=== PATIENT | male | born 1950 | race Caucasian/White ===

== ENCOUNTER 2020-05-13 06:40 | Inpatient (IN) | payer MEDICARE, BC, SELFPAY ==
[2020-05-13] VITALS (19 sets, daily range): BP systolic 92–119; BP diastolic 48–69; PULSE 65–87; RESP 14–20; TEMP 36.7–37.2; O2SAT 95–100; BMI 22.1
--- NOTE | ~2020-05-13 | XR_ITS ---
XR chest 2V DATE: 05/13/2020 07:21 INDICATION: Chest pain TECHNIQUE: AP and lateral views COMPARISON: 02/09/2019 AP and lateral chest FINDINGS: Normal heart size. No hilar or mediastinal enlargement. No pulmonary infiltrate or consolidation, pleural effusion or pulmonary vascular congestion or pneumo thorax. Included skeletal structures are unremarkable other than degenerative spurring of the thoracic spine. IMPRESSION: No active cardiopulmonary disease Reviewed, dictated and finalized at location A. RER PIPELINE
--- NOTE | ~2020-05-13 | US_ITS ---
EXAMINATION: US aorta DATE: 05/14/2020 16:05 INDICATION: Palpable aorta. Epigastric pain. TECHNIQUE: Grayscale, color Doppler, and pulsed Doppler images of the aorta and common iliac arteries were obtained. COMPARISON: None. FINDINGS: The proximal aorta measures 1.9 cm in maximal AP diameter. The mid aorta measures 1.6 cm. The distal aorta measures 1.4 cm. The right common iliac artery measures 9 mm. The left common iliac artery hiren ures 9 mm. IMPRESSION: 1. Normal caliber abdominal aorta. Reviewed, dictated and finalized at location A. E PROFESSOR
--- NOTE | 2020-05-13 06:41 | ECG_ITS ---
Measurements Intervals [place] Rate: 84 P: 42 LA: 120 QRS: 0 QRSD: 110 T: 100 QT: 355 QTc: 421 Interpretive Statements SINUS RHYTHM BORDERLINE T WAVE ABNORMALITY- DIFFUSE LEADS BASELINE ARTIFACT- I, II, III, AVR, AVL, AVF, V3-V6 BORDERLINE ECG Electronically Signed On 05-13-2020 8:05:52 EQUIPMENT PLANNER by Raheel Garcia D.O.
--- NOTE | 2020-05-13 07:06 | ED.CHESTPAIN ---
HPI - Chest Pain General Chief Complaint: Chest Pain Stated Complaint: chest pain Time Seen by Provider: 05/13/20 06:59 History of Present Illness HPI narrative: Severe pain in the epigastrium, chest, and throat since about 10 PM last night. Unable to provide further description of timing, course, or quality. He says that he has had similar pain in the past. He does not known what caused it. He says that he is in too much agony to provide anymore history. History limited by lack of patient cooperation. Related Data Home Medications Medication Instructions Recorded Confirmed [id number]-LI-Dl-Ub-djjfvhk-lutein 0.5 tablet PO USEASDIRECTD 05/13/20 05/13/20 [Centrum] vitamin B complex 1 tablet PO DIRECTED 05/13/20 05/13/20 Allergies Allergy/AdvReac Type Severity Reaction Status Date / Time No Known Allergies Allergy Verified 05/13/20 17:48 Review of Systems Review of Systems: All systems reviewed & are unremarkable except as noted in HPI and below Constitutional: Constitutional: Denies chills and Denies fever(s) ENT: Reports sore throat Cardiovascular: Cardiovascular: Reports chest pain and Reports radiating jaw, neck or arm pain Respiratory: Respiratory: Denies cough and Denies dyspnea Gastrointestinal: Gastrointestinal: Reports abdominal pain and Reports nausea Neurologic: Denies weakness PMFSH Comments Not providing medical history at this time Exam Const: General: no acute distress and alert HENMT: Head: normal to inspection Neck: Neck: normal visual inspection Resp: Effort & Inspection: normal respiratory effort Skin: General skin exam: normal color Neuro: General: moves all extremities Speech: normal speech Extrem: General: no edema Course Course Emergency Course: After medicating the patient he slept for a couple of hours then upon reassement he was once again shouting and unwilling to provide history. Vital Signs Vital signs: Vital Signs Temperature 36.7 C 05/13/20 06:41 Pulse Rate 76 05/13/20 06:41 Respiratory Rate 19 05/13/20 06:41 Blood Pressure 113/69 05/13/20 06:41 Pulse Oximetry 99 05/13/20 06:41 Temperature 36.7 C 05/13/20 06:41 Pulse Rate 73 05/13/20 17:33 Respiratory Rate 20 05/13/20 17:33 Blood Pressure 107/59 L 05/13/20 17:33 Pulse Oximetry 98 05/13/20 17:33 MDM - Chest Pain MDM Narrative Medical decision making narrative: Pain seems most likely GI, but given that it is on going it is difficult to fully r/o cardiac cause. Previous admission he did have elevated troponin. Medical Records Data Attestation: I reviewed the patient's medical records. Lab Data Attestation: I reviewed the patient's lab results. Result diagrams: 05/13/20 06:58 05/13/20 06:58 Labs: Lab Results 05/13/20 05/13/20 05/13/20 Range/Units 06:57 06:58 06:58 WBC 6.0 (4.5-10.0) K/mm3 RBC 4.29 L (4.6-6.20) M/mm3 Hgb 13.1 L (14.0-18.0) g/dL Hct 38.0 L (42.0-52.0) % MCV 88.6 (80-100) fl MCH 30.5 (26-34) pg MCHC 34.5 (32-36) g/dl RDW 12.5 (11.5-14.5) % Plt Count 137 L (150-375) k/mm3 MPV 10.9 H (7.4-10.4) fl Immature Gran % (Auto) 0.3 (0-0.5) % Neut % (Auto) 86.6 H (45.5-73.1) % Lymph % (Auto) 10.0 L (18.3-44.2) % [place] % (Auto) 2.8 (2.6-8.5) % Eos % (Auto) 0.0 (0-4.4) % Baso % (Auto) 0.3 (0.2-1.2) % Lymph # (Auto) 0.60 L (0.9-3.2) K/mm3 [place] # (Auto) 0.2 (0.1-0.6) K/mm3 Eos # (Auto) 0.0 (0-0.3) K/mm3 Baso # (Auto) 0.0 (0.0-0.1) K/mm3 Abs Immat Gran (auto) 0.02 (0.00-0.031) K/mm3 Absolute Neuts (auto) 5.2 (1.3-6.7) K/mm3 Absolute Nucleated RBC 0.0 (0.0-0.012) K/mm3 Nucleated RBC % 0.0 (0.0-0.2) % % Immature Plt Fraction 5.4 (0.9-11.2) % PT 14.4 (11.1-14.7) Seconds INR 1.1 APTT 29.0 (22.3-36.8) SECONDS Sodium (137-145) mmol/L Potassium (3.4-5.0) mmol/L Chloride (98-107)
[2020-05-13 07:12] LABS: Basophils Percent Auto 0.3 % (0.2-1.2); Hemoglobin 13.1 g/dL (14.0-18.0); Immature Granulocyte Absolute 0.02 K/mm3 (0.00-0.031); Immature Granulocyte Percent A 0.3 % (0-0.5); Immature Platelet Fraction Pct 5.4 % (0.9-11.2); Mean Corpuscular HGB Conc 34.5 g/dl (32-36); Mean Corpuscular Hemoglobin 30.5 pg (26-34); Mean Corpuscular Volume 88.6 fl (80-100); Mean Platelet Volume 10.9 fl (7.4-10.4); Monocytes Absolute Auto 0.2 K/mm3 (0.1-0.6); Monocytes Percent Auto 2.8 % (2.6-8.5); Neutrophils Absolute Auto 5.2 K/mm3 (1.3-6.7); Neutrophils Percent Auto 86.6 % (45.5-73.1); Platelet Count Result 137 k/mm3 (150-375); Red Blood Count 4.29 M/mm3 (4.6-6.20); Red Cell Distribution Width 12.5 % (11.5-14.5)
[2020-05-13 07:20] LABS: INR 1.1; Prothrombin Time 14.4 Seconds (11.1-14.7)
[2020-05-13 07:24] LABS: Anion Gap 10 mmol/L (8-16); Blood Urea Nitrogen 15 mg/dL (9-20); Calcium 10.1 mg/dL (8.4-10.2); Carbon Dioxide 27 mmol/L (22-30); Chloride 101 mmol/L (98-107); Estimated CRCL calculation 60 ml/min; Estimated Glomerular Filt Rate > 60; Glucose 139 mg/dL (75-110); Potassium 4.1 mmol/L (3.4-5.0); Sodium 138 mmol/L (137-145)
[2020-05-13] MEDS: MORPHINE SULFATE (*CRX) 2 MG/ML INJ IV PUSH ×2 (07:25→10:12)
[2020-05-13] MEDS: PANTOPRAZOLE SODIUM IV 40 MG VIAL IV PUSH ×2 (07:25→23:50)
[2020-05-13 07:36] LABS: Troponin I < 0.012 ng/mL (0.000-0.034)
[2020-05-13 07:51] LABS: Alanine Aminotransferase 14 U/L (4-50); Albumin Level 4.3 g/dL (3.5-5.1); Alkaline Phosphatase 79 U/L (38-126); Aspartate Amino Transferase 28 U/L (17-59); Bilirubin,Total 0.6 mg/dL (0.2-1.3); Lipase 98 U/L (23-300)
[2020-05-13 10:39] LABS: Troponin I < 0.012 ng/mL (0.000-0.034)
[2020-05-13 13:15] LABS: Troponin I < 0.012 ng/mL (0.000-0.034)
--- NOTE | 2020-05-13 13:30 | PM.IMHP ---
H&P: HPI History of Present Illness Date/Time: 05/13/20 13:30. The patient was seen and evaluated in the emergency department. Chief complaint: Chest pain, nausea, and vomiting. Narrative: Joseph Sims is a pleasant 69-year-old male with paroxysmal atrial fibrillation and hypertension, no longer on medications, via EMS from home for evaluation of chest pain, nausea, and vomiting. As the evening progressed yesterday he began to feel nauseated and had several bouts of emesis thereafter consisting of the food he had prepared for dinner, which was a rice based dish. Not long thereafter he began experiencing pain in the epigastrium radiating to the mid chest and to the base of the neck. He is not able to describe the pain but reports that it was so severe that it was ?unbearable.? He does have occasional heartburn and in fact tells me that he purchased Mylanta several days ago for heartburn and it seemed to help at that time, however provided him no relief last evening. He continues to be nauseated however has not vomited since last evening. After receiving a GI cocktail, Protonix, and morphine in the emergency department he feels much better. He has been quite emotional recently with increase in stress as his has been diagnosed with female cancer and she is currently had a usp after being hospitalized. He has not had any longstanding problems with GERD and has no known history of peptic ulcers. He denies bloating, early satiety, and weight loss. He has not had exertional chest pain or shortness of breath. He drinks 2 cups of decaffeinated coffee a day and will rarely drink alcohol. No NSAID use. He denies hematemesis, melena, and hematochezia. Review of Systems Review of Systems: Narrative: Twelve systems were reviewed with pertinent positives and negatives as per HPI. No fever, chills, or sweats. No recent cold or flu symptoms. To his knowledge he has not been exposed to those positive for COVID-19. No orthopnea, PND, or lower extremity edema. He denies palpitations and pleuritic pain. No known history of coronary artery disease. He does have a history of paroxysmal atrial fibrillation but stopped taking his anticoagulation and metoprolol several months ago because it was causing him to feel weak and woozy. Except as documented, all other systems were reviewed and are negative. [facility] Past Medical History Medical History (Updated 05/13/20 @ 23:16 by Mansi Fulton PA-C) Anemia Anxiety Hypertension No longer on medication. Kidney stones Paroxysmal atrial fibrillation He stopped taking his anticoagulation of his own volition. Thrombocytopenia Chronic, mild thrombocytopenia. Surgical History Surgical History (Updated 05/13/20 @ 23:13 by Mansi Fulton PA-C) History of nephrolithotomy with removal of calculi Family History Family History Father Alzheimer disease Mother Pneumonia Sibling Ulcer Social History Social History (Updated 05/13/20 @ 23:14 by Mansi Fulton PA-C) Social History: Surrogate decision maker: Jodi Edwards, spouse. Code status: Full code. Smoking packs per day: 0.5 Smoking cigarettes per day: 10.0 Years smoked: 17 Smoking pack-years: 8.50 Smoking status: Former smoker Tobacco type: cigarettes Second hand tobacco smoke exposure: Yes Alcohol intake: current Substance use: never Additional living arrangements comments: Patient resides with his in [place]. He is originally from [place] and studied in [place] and [place] before moving to the [facility] [place]. 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 Gender identity (if verbalized by the patient): Male Sexual Orientation (if Verbalized by the Patient): Straight or Heterosexual Spiritual care concerns: No Meds Home Medications and Allergies Home Medicati
--- NOTE | 2020-05-13 16:30 | PC.NURSE ---
PT OFFERED DINNER TRAY. REFUSES TRAY AT THIS TIME. PT GIVEN WATER PER PT REQUEST
--- NOTE | 2020-05-13 17:50 | ADMGEN ---
This patient, Joseph Sims, was admitted to [facility]. Patient/family oriented to hospital policies and general routines including ID bracelet, bed and alarms, visiting hours, pain management, procedures, bathroom and other care routines, personal items, smoking policy, room service/diet, and visiting hours. Information on how to activate the Rapid Response Team has been discussed. Patient/Family are encouraged to report perceived risks to care and to ask questions if they do not understand what they are told or what they should do.
[2020-05-13] MEDS: SODIUM CHLORIDE 0.9% IV 1,000 ML 100 ML IV CONT (23:50)
[2020-05-14] VITALS (10 sets, daily range): BP systolic 90–123; BP diastolic 49–52; PULSE 56–72; RESP 15–20; TEMP 36.6–37.1; O2SAT 97–99; BMI 22.1
[2020-05-14 05:42] LABS: Hematocrit 36.1 % (42.0-52.0); Hemoglobin 12.1 g/dL (14.0-18.0); Mean Corpuscular HGB Conc 33.5 g/dl (32-36); Mean Corpuscular Hemoglobin 30.6 pg (26-34); Mean Corpuscular Volume 91.2 fl (80-100); Mean Platelet Volume 12.2 fl (7.4-10.4); Platelet Count Result 121 k/mm3 (150-375); Red Blood Count 3.96 M/mm3 (4.6-6.20); Red Cell Distribution Width 12.8 % (11.5-14.5); White Blood Count 5.9 K/mm3 (4.5-10.0)
[2020-05-14 05:55] LABS: Anion Gap 5 mmol/L (8-16); Blood Urea Nitrogen 21 mg/dL (9-20); Calcium 8.6 mg/dL (8.4-10.2); Carbon Dioxide 29 mmol/L (22-30); Chloride 101 mmol/L (98-107); Estimated CRCL calculation 57 ml/min; Estimated Glomerular Filt Rate > 60; Glucose 96 mg/dL (75-110); Magnesium 2.1 mg/dL (1.6-2.3); Potassium 4.2 mmol/L (3.4-5.0); Sodium 135 mmol/L (137-145)
--- NOTE | 2020-05-14 07:44 | PC.NURSE ---
spoke with pt about low BP, he is asymptomatic and feels fine, pt states he typically runs a low BP
--- NOTE | 2020-05-14 09:38 | PM.CNCAR ---
Assessment and Plan Assessment and plan (1) Chest pain: Code(s): R07.9 - Chest pain, unspecified Status: Acute Assessment and Plan: Atypical, radiating from the epigastrium which began 4 hours after meal nausea and emesis now resolved. Ruled out for [place] with negative serial troponins, EKG without acute ischemic changes. 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 No exertional anginal symptoms. Intermittent reported CP sxs described as heratburn and occur in setting after meals and/or in supine position, never exertional as he reports. Symptoms most likely secondary to gastrointestinal etiology. Defer further workup and management to GI and primary service. PPI, supportive care, IV fluids. (2) Nausea and vomiting: Code(s): R11.2 - Nausea with vomiting, unspecified Status: Acute Assessment and Plan: Resolved at this time. As above. Likely gastroenteritis versus gastritis (3) Paroxysmal atrial fibrillation: Code(s): I48.0 - Paroxysmal atrial fibrillation Status: Acute Assessment and Plan: Patient is symptomatic with episodes of atrial fibrillation yet has remained in sinus rhythm without medications which he stopped (Eliquis and Metoprolol 12.5mg BID) on his own earlier this year. CHADS2 Vasc score essentially 2 systemic anticoagulation had been previously advised. Patient stopped on his own due to intermittent epistaxis. He stopped metoprolol due to feeling ?woozy?. We discussed the in adequate stroke risk reduction with aspirin alone as well as predilection for gastric inflammation with ASA. We will discuss alternative to Eliquis but pt needs to recover further from GI perspective. If he will not be discharged on A/C or he is not willing (as he stopped therapy on his own previously and wishes to wait) ASA at a minimum daily. Counseled on the risks associated noncompliance with medications for mild stroke off systemic anticoagulation and AFib recurrence off AV ace blocking agents. Also discussed the importance of medication tolerance. (4) Dehydration: Code(s): E86.0 - Dehydration Status: Acute Assessment and Plan: Advanced diet as tolerated, IV fluid support as warranted. (5) Epigastric pain: Code(s): R10.13 - Epigastric pain Status: Acute Assessment and Plan: I do not highly suspect vascular or cardiac contribution to current symptom complex. However, given age, history tobacco abuse and palpable abdominal aorta will obtain arterial Doppler of the abdominal aorta to exclude aneurysm. History of Present Illness History of Present Illness Consult date/time: Date of service: 05/14/20 09:38 Cardiology consultation at the request of Mansi Fulton NP of the [facility] service for our opinion regarding chest pain. Requesting physician: Mansi Fulton PA-C Consult reason: chest pain Reason For Visit: Chest pain, nausea, and vomiting. Narrative: Patient is a pleasant 69-year-old male with history of symptomatic paroxysmal atrial fibrillation, abnormal stress test, dyslipidemia who presented to the hospital with complaints of nausea, vomiting and chest discomfort. Patient states beginning Thursday evening approximately 4 hours after having his rice based dinner he developed intense nausea and epigastric discomfort radiating up into his chest with associated nausea. Patient had several bouts of emesis with no blood. Patient motions to his upper epigastrium and upper down the sternum in describing location. No other radiation noted. He denies associated fevers, chills or shortness of breath. He denies diarrhea or constipation. No melena or bright red blood per rectum. Denies recent illnesses, sick contacts otherwise. On his own he stopped his metoprolol, atorvastatin and Eliquis early this year of concern for intermittent epistaxis clogging his nasal passages. He denies any problems with at
--- NOTE | 2020-05-14 09:50 | PC.NURSE ---
call to pharmacy, missing a.m meds
[2020-05-14] MEDS: PANTOPRAZOLE SODIUM IV 40 MG VIAL IV PUSH ×2 (10:55→20:14)
[2020-05-14] MEDS: SODIUM CHLORIDE 0.9% IV 1,000 ML 100 ML IV CONT ×2 (10:55→20:15)
--- NOTE | 2020-05-14 12:31 | PM.IMPN ---
Progress Note: A&P Assessment and Plan (1) Chest pain: Code(s): R07.9 - Chest pain, unspecified Status: Acute Assessment and Plan: Atypical, radiating from the epigastrium which began 4 hours after meal nausea and emesis now resolved. Ruled out for [place] with negative serial troponins, EKG without acute ischemic changes. 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 No exertional anginal symptoms. Intermittent reported CP sxs described as heratburn and occur in setting after meals and/or in supine position, never exertional as he reports. Symptoms most likely secondary to gastrointestinal further workup and management to GI continue Protonix and IV fluids. With age, history tobacco abuse and palpable abdominal aorta - Fabric Worker ordered arterial Doppler of the abdominal aorta to exclude aneurysm. (2) Nausea and vomiting: Code(s): R11.2 - Nausea with vomiting, unspecified Status: Acute Assessment and Plan: Resolved at this time. may be gastroenteritis versus gastritis advancing patient's diet at this time continue to monitor while patient restarts oral hydration and nutrition (3) Paroxysmal atrial fibrillation: Code(s): I48.0 - Paroxysmal atrial fibrillation Status: Acute Assessment and Plan: Currently in Sinus rhythm. asymptomatic at this time. appreciate Fabric Worker consultation, care of patient, and discussing BB and systemic anticoagulation. Fabric Worker will discuss alternative to Eliquis but pt needs to recover further from GI perspective. discharged on ASA at a minimum daily. (4) Dehydration: Code(s): E86.0 - Dehydration Status: Acute Assessment and Plan: Advanced diet as tolerated, IV fluid support as warranted. advancing patient's diet at this time continue to monitor while patient restarts oral hydration and nutrition (5) Epigastric pain: Code(s): R10.13 - Epigastric pain Status: Acute Assessment and Plan: I do not highly suspect vascular or cardiac contribution to current symptom complex. However, given age, history tobacco abuse and palpable abdominal aorta will obtain arterial Doppler of the abdominal aorta to exclude aneurysm. Subjective Date/time seen: 05/14/20 12:31 Joseph was feeling very tired today, finding hard to keep his eyes open. Stated that his epigastric pain had been so bed prior to the GI cocktail, that he was unable to rest or sleep. He has felt much better since that was given. He continues to deny left shoulder pain, jaw or neck pain/numbness/tingling, chest pain, or SOB. He has not been ambulating in the hallway, so I have encouraged him to do so; ordered PT libby for discharge planning. He stated that he feels the severe pain was a GI related; possibly to the meal. He is finding it hard to advance his diet in the hospital as he will only drink or use [employer] milk. He had a colonoscopy many years ago, in the [place] area, but no history of EGD. He denies any known COVID exposures and denies any family/friends with illness. Appreciate Fabric Worker orders and workup, consulted GI based on above and per Cardio rule out. He admits to voiding and continent of urine/stool today, but stated that his urine is still very dark in color. Discharge pending patient's ability to keep himself hydrated and food down. I/Os showed very little intake this morning. Continue to encourage hydration and nutrition. Review of Systems Review of Systems: All systems reviewed & are unremarkable except as noted in HPI and below Constitutional: Constitutional: Reports as per HPI, Reports no additional constitutional complaints, Denies chills, Denies fever(s) and Reports weakness Eyes: Eyes: Reports as per HPI and Reports no additional eye complaints ENT: Reports system reviewed and no additional complaints, except as documented, Reports as per HPI, Denies epistaxis, Denies nasal discharge and Reports sore t
--- NOTE | 2020-05-14 16:44 | WPDGICN ---
Assessment and Plan Assessment and plan (1) Nausea and vomiting: Code(s): R11.2 - Nausea with vomiting, unspecified Status: Acute (2) Epigastric pain: Code(s): R10.13 - Epigastric pain Status: Acute Assessment and Plan: Patient with rather severe epigastric and substernal chest pain. Appears to be associated with nausea vomiting. Grossly appears to be a GI etiology. Cardiology is following patient because of chest pain as well as atrial fibrillation. Plan is to start patient on proton pump inhibitor such as Protonix. An EGD will be performed in the morning when he can be NPO. (3) Paroxysmal atrial fibrillation: Code(s): I48.0 - Paroxysmal atrial fibrillation Status: Acute Assessment and Plan: Eliquis anticoagulation will be held until EGD can be accomplished. (4) Chest pain: Code(s): R07.9 - Chest pain, unspecified Status: Acute GI Consult Note Consult date/time: 05/14/20 16:44 HPI: Joseph Sims is a 69 year old male seen in evaluation at the request of the hospitalist service. Patient reports abdominal pain with associated with nausea vomiting that began on Thursday evening. States this persisted until be given injection in the emergency room. States pain is most severe is ever had. Emanates from the epigastric area up to his throat. He did obtain some relief with a GI cocktail. He has never had pain to this degree before. Currently states that the pain has abated at present. He desires evaluation so that he never has this pain again. Review of Systems Review of Systems: All systems reviewed & are unremarkable except as noted in HPI and below PMFSH Past Medical History Medical History Anemia Anxiety Hypertension No longer on medication. Kidney stones Paroxysmal atrial fibrillation He stopped taking his anticoagulation of his own volition. Thrombocytopenia Chronic, mild thrombocytopenia. Surgical History Surgical History History of nephrolithotomy with removal of calculi Family History Family History Father Alzheimer disease Mother Pneumonia Sibling Ulcer Social History Social History Social History: Surrogate decision maker: Jodi Edwards, spouse. Code status: Full code. Smoking packs per day: 0.5 Smoking cigarettes per day: 10.0 Years smoked: 17 Smoking pack-years: 8.50 Smoking status: Former smoker Tobacco type: cigarettes Second hand tobacco smoke exposure: Yes Alcohol intake: current Substance use: never Additional living arrangements comments: Patient resides with his in [place]. He is originally from [place] and studied in [facility] and [place] before moving to the [facility]. 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 Gender identity (if verbalized by the patient): Male Sexual Orientation (if Verbalized by the Patient): Straight or Heterosexual Spiritual care concerns: No Meds Home Medications and Allergies Home Medications Medication Instructions Recorded Confirmed Type vu-ruq-MH-Si-Mu-qdokrot-lutein 0.5 tablet PO USEASDIRECTD 05/13/20 05/13/20 History [Centrum] vitamin B complex 1 tablet PO DIRECTED 05/13/20 05/13/20 History Allergies Allergy/AdvReac Type Severity Reaction Status Date / Time No Known Allergies Allergy Verified 05/13/20 17:48 Vital Signs Vital Signs - 24 hr 05/13/20 17:33 05/13/20 17:46 05/13/20 18:17 Temperature 98.7 F Pulse Rate 73 77 74 Respiratory Rate 20 18 Blood Pressure 107/59 L 103/52 L Pulse Oximetry 98 98 05/13/20 20:00 05/13/20 22:00 05/14/20 00:00 Temperature 98.9 F Pulse Rate 72 70 69 Respiratory Rate 14 B
[2020-05-15] VITALS (11 sets, daily range): BP systolic 110–120; BP diastolic 48–66; PULSE 60–73; RESP 16–24; TEMP 36.2–36.7; O2SAT 96–100
[2020-05-15 05:50] LABS: Basophils Percent Auto 0.6 % (0.2-1.2); Eosinophils Absolute Auto 0.1 K/mm3 (0-0.3); Eosinophils Percent Auto 1.1 % (0-4.4); Hematocrit 34.7 % (42.0-52.0); Hemoglobin 11.7 g/dL (14.0-18.0); Immature Granulocyte Absolute 0.01 K/mm3 (0.00-0.031); Immature Granulocyte Percent A 0.2 % (0-0.5); Immature Platelet Fraction Pct 4.2 % (0.9-11.2); Lymphocytes Absolute Auto 1.63 K/mm3 (0.9-3.2); Lymphocytes Percent Auto 30.3 % (18.3-44.2); Mean Corpuscular HGB Conc 33.7 g/dl (32-36); Mean Corpuscular Hemoglobin 30.2 pg (26-34); Mean Corpuscular Volume 89.7 fl (80-100); Mean Platelet Volume 11.1 fl (7.4-10.4); Monocytes Absolute Auto 0.6 K/mm3 (0.1-0.6); Neutrophils Absolute Auto 3.1 K/mm3 (1.3-6.7); Neutrophils Percent Auto 56.8 % (45.5-73.1); Platelet Count Result 107 k/mm3 (150-375); Red Blood Count 3.87 M/mm3 (4.6-6.20); Red Cell Distribution Width 12.3 % (11.5-14.5); White Blood Count 5.4 K/mm3 (4.5-10.0)
[2020-05-15 06:04] LABS: Alanine Aminotransferase 11 U/L (4-50); Albumin Level 3.4 g/dL (3.5-5.1); Alkaline Phosphatase 54 U/L (38-126); Anion Gap 11 mmol/L (8-16); Aspartate Amino Transferase 21 U/L (17-59); Bilirubin,Total 0.6 mg/dL (0.2-1.3); Blood Urea Nitrogen 18 mg/dL (9-20); Calcium 8.5 mg/dL (8.4-10.2); Carbon Dioxide 22 mmol/L (22-30); Chloride 107 mmol/L (98-107); Estimated CRCL calculation 63 ml/min; Estimated Glomerular Filt Rate > 60; Glucose 63 mg/dL (75-110); Phosphorus 2.5 mg/dL (2.5-4.5); Potassium 3.7 mmol/L (3.4-5.0); Sodium 140 mmol/L (137-145)
[2020-05-15] MEDS: SODIUM CHLORIDE 0.9% IV 1,000 ML 100 ML IV CONT (08:03)
[2020-05-15] MEDS: LACTATED RINGERS 1,000 ML 150 ML IV CONT (08:38)
--- NOTE | 2020-05-15 09:39 | WPDANESEPPF ---
Anes - Initial Pre Proc Eval Procedure: Operation Date: 05/15/20 10:00 Proposed Procedures p Esophagogastroduodenoscopy - Luis Clark MD Date/Time: 05/15/20 09:39 Surgeon: Saulo Lopez PA-C Pre Op Diagnosis: Chest pain, nausea, and vomiting. Patient Data Age: 69 Gender: M Height: 6 ft Weight: 74.1 kg Last Vital Signs Temp 97.1 F L 05/15/20 08:33 Pulse 60 05/15/20 08:33 Resp 16 05/15/20 08:33 BP 120/59 L 05/15/20 08:33 Pulse Ox 98 05/15/20 08:33 Allergies Allergy/AdvReac Type Severity Reaction Status Date / Time Milk Containing Products AdvReac Gastrointestinal Verified 05/14/20 18:12 Upset Home Medications Medication Instructions Recorded Confirmed Type [id number]-lutein 0.5 tablet PO USEASDIRECTD 05/13/20 05/13/20 History [Centrum] vitamin B complex 1 tablet PO DIRECTED 05/13/20 05/13/20 History Laboratory Tests 05/15/20 05/15/20 05:36 05:36 WBC 5.4 K/mm3 K/mm3 (4.5-10.0) RBC 3.87 M/mm3 L M/mm3 (4.6-6.20) Hgb 11.7 g/dL L g/dL (14.0-18.0) Hct 34.7 % L % (42.0-52.0) MCV 89.7 fl fl (80-100) MCH 30.2 pg pg (26-34) MCHC 33.7 g/dl g/dl (32-36) RDW 12.3 % % (11.5-14.5) Plt Count 107 k/mm3 L k/mm3 (150-375) MPV 11.1 fl H fl (7.4-10.4) Immature Gran % (Auto) 0.2 % % (0-0.5) Neut % (Auto) 56.8 % % (45.5-73.1) Lymph % (Auto) 30.3 % % (18.3-44.2) [place] % (Auto) 11.0 % H % (2.6-8.5) Eos % (Auto) 1.1 % % (0-4.4) Baso % (Auto) 0.6 % % (0.2-1.2) Lymph # (Auto) 1.63 K/mm3 K/mm3 (0.9-3.2) [place] # (Auto) 0.6 K/mm3 K/mm3 (0.1-0.6) Eos # (Auto) 0.1 K/mm3 K/mm3 (0-0.3) Baso # (Auto) 0.0 K/mm3 K/mm3 (0.0-0.1) Abs Immat Gran (auto) 0.01 K/mm3 K/mm3 (0.00-0.031) Absolute Neuts (auto) 3.1 K/mm3 K/mm3 (1.3-6.7) Absolute Nucleated RBC 0.0 K/mm3 K/mm3 (0.0-0.012) Nucleated RBC % 0.0 % % (0.0-0.2) % Immature Plt Fraction 4.2 % % (0.9-11.2) Sodium 140 mmol/L mmol/L (137-145) Potassium 3.7 mmol/L mmol/L (3.4-5.0) Chloride 107 mmol/L mmol/L (98-107) Carbon Dioxide 22 mmol/L mmol/L (22-30) Anion Gap 11 mmol/L mmol/L (8-16) BUN 18 mg/dL mg/dL (9-20) Creatinine 1.00 mg/dL mg/dL (0.7-1.3) Estim Creat Clear Calc 63 ml/min ml/min Estimated GFR > 60 (59 - ) Glucose 63 mg/dL L mg/dL (75-110) Calcium 8.5 mg/dL mg/dL (8.4-10.2) Phosphorus 2.5 mg/dL mg/dL (2.5-4.5) Total Bilirubin 0.6 mg/dL mg/dL (0.2-1.3) AST 21 U/L U/L (17-59) ALT 11 U/L U/L (4-50) Alkaline Phosphatase 54 U/L U/L (38-126) Total Protein 6.0 g/dL L g/dL (6.3-8.2) Albumin 3.4 g/dL L g/dL (3.5-5.1) Patient hx anesthesia problems: none Family hx anesthesia problems: none [facility] Past Medical History Medical History Anemia Anxiety Hypertension No longer on medication. Kidney stones Paroxysmal atrial fibrillation He stopped taking his anticoagulation of his own volition. Thrombocytopenia Chronic, mild thrombocytopenia. Surgical History Surgical History History of nephrolithotomy with removal of calculi Family History Family History Father Alzheimer disease Mother Pneumonia Sibling Ulcer Social History Social History Social History: Surrogate decision maker: Jodi Blaneron, spouse. Code status: Full code. Smoking packs per day: 0.5 Smoking cigarettes per day: 10.0 Years smoked: 17 Smoking pack-years: 8.50 Smoking status: Former smoker Tobacco type: cigarettes Second hand tobacco smoke
[2020-05-15] MEDS: PANTOPRAZOLE 40 MG TABLET PO (11:27)
--- NOTE | 2020-05-15 14:22 | PM.IMPN ---
Progress Note: A&P Assessment and Plan (1) Epigastric pain: Code(s): R10.13 - Epigastric pain Status: Acute Assessment and Plan: Epigastric pain likely GI related. Cardiac work up negative thus far. Aortic US was unremarkable. EGD today shows gastric erosions without evidence of bleeding; histology pending. GI following and appreciate recommendations. 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 Continue PPI therapy BID Will await further rec from GI and Cardiology in terms of a/c vs ASA therapy for paroxysmal a. fib Monitor for now Consider discharge once okay with other specialists (2) Nausea and vomiting: Code(s): R11.2 - Nausea with vomiting, unspecified Status: Resolved Assessment and Plan: Resolved at this time. Likely gastritis; gastric erosions noted on EGD, no evidence of active bleeding. Tolerating diet at this time Monitor (3) Paroxysmal atrial fibrillation: Code(s): I48.0 - Paroxysmal atrial fibrillation Status: Acute Assessment and Plan: Currently in Sinus rhythm; asymptomatic at this time. Cardiology consulted and appreciate recommendations. Home BB and a/c are being discussed with patient. 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 Await further recommendations from Cardiology Monitor (4) Dehydration: Code(s): E86.0 - Dehydration Status: Acute Assessment and Plan: Tolerating diet. Will d/c IVf continue to monitor Subjective Date/time seen: 05/15/20 14:22 Interval history: Patient is a 69 yo M with history of anemia, HTN, anxiety, and paroxysmal a. fib (self d/c'd home metoprolol and Eliquis several months ago) who is here for evaluation for epigastric pain. Patient states he feels better today after his EGD performed by Dr. Clark. He is tolerating his diet okay thus far. No pain currently. No N/v/. No other complaints. Wishing to be discharged. Denies f/c/s, headaches,cp/palpitations, sob/cough, current n/v/d/c, abd pain, changes in BMs, dysuria, hematuria, cloudy urine, calf pain/swelling. Review of Systems Review of Systems: All systems reviewed & are unremarkable except as noted in HPI and below Exam Narrative: Exam Narrative: General: Patient resting supine in bed with head raised in no acute distress. HEENT: Normocephalic, EOMI, oral mucosa moist. Cardiovascular: Rate and rhythm are regular. No notable murmur, rub, or gallop. Tele shows apparent NSR with occasional PVCs, asymptomatic. Respiratory: Lungs clear to auscultation all chowdhury. Non-labored breathing. Abdomen: Soft, non-tender, non-distended, bowel sounds present. Extremities: Peripheral pulses intact. No edema. Neuro: No focal neurological deficits. Speech is clear. Objective Data Vital Signs Vital Signs: Last Vital Signs Temp 97.6 F 05/15/20 14:00 Pulse 62 05/15/20 14:00 Resp 16 05/15/20 14:00 BP 112/48 L 05/15/20 14:00 Pulse Ox 100 05/15/20 14:00 Intake/Output Intake/Output: Intake & Output 05/12/20 05/13/20 05/14/20 05/15/20 23:59 23:59 23:59 23:59 Intake Total 2049 1300 Balance 2049 1300 Meds/Results Medications: Active Medications Generic Name Dose Route Start Last Admin Trade Name Freq PRN Reason Stop Dose Admin Aspirin 81 mg 05/14/20 08:00 05/15/20 11:26 Aspirin 81 Mg Chewable Tablet PO Not Given DAILY@0800 NYLA Calcium Carbonate 200 mg 05/14/20 12:27 Calcium Carbonate (Tums) 500 Mg (200 Mg Elemental) PO Q6H PRN Indigestion Sodium Chloride 1,000 mls @ 100 mls/hr 05/14/20 09:50 05/15/20 08:10 Normal Saline Iv IV CONT 0 mls/hr .Q10H NYLA Infusion Ondansetron HCl 4 mg 05/13/20 23:22 Ondansetron Inj 4 Mg/2 Ml Vial IV PUS
--- NOTE | 2020-05-15 15:42 | PM.PNCARD ---
Progress Note: A&P Assessment and Plan (1) Chest pain: Qualifiers: Chest pain type: other chest pain Qualified Code(s): R07.89 - Other chest pain Code(s): R07.9 - Chest pain, unspecified Status: Acute Assessment and Plan: Atypical, radiating from the epigastrium which began 4 hours after meal nausea and emesis now resolved. Ruled out for NH with negative serial troponins. EKG without acute ischemic changes. 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 No exertional anginal symptoms. EGD 05/15/2020: Multiple localized erosions evident in the pre-pyloric region. Erosions were not bleeding. A few cold forceps biopsies were taken for pathology. (2) Nausea and vomiting: Qualifiers: Vomiting type: unspecified Code(s): R11.2 - Nausea with vomiting, unspecified Status: Resolved Assessment and Plan: Resolved at this time. As above. (3) Paroxysmal atrial fibrillation: Code(s): I48.0 - Paroxysmal atrial fibrillation Status: Acute Assessment and Plan: He has been symptomatic with episodes of atrial fibrillation yet has remained in sinus rhythm without medications which he stopped (Eliquis and Metoprolol 12.5mg BID) on his own earlier this year. CHADS2 Vasc score essentially 2 systemic anticoagulation had been previously advised. He stopped on his own due to intermittent epistaxis. He stopped metoprolol due to feeling ?woozy?. Inadequate stroke risk reduction with aspirin alone as well as predilection for gastric inflammation with ASA. He needs to recover from GI perspective. Follow-up appointment provided on June 19, 2020 to discuss restarting anticoagulation. Due to erosions aspirin will not be started. Risk of bleeding outweighs the benefit. He has maintained normal sinus rhythm while on telemetry. Recommended he follow-up with ENT for epistaxis especially if agrees to restart anticoagulation. He verbalized an understanding that if he should go back into atrial fibrillation he would be at increased risk for stroke while not on anticoagulation. (4) Dehydration: Code(s): E86.0 - Dehydration Status: Acute Assessment and Plan: Resolved. Ate lunch with no nausea or vomiting. No abdominal pain. Discontinue IV fluids. (5) Epigastric pain: Code(s): R10.13 - Epigastric pain Status: Acute Assessment and Plan: I do not highly suspect vascular or cardiac contribution to current symptom complex. Due to palpable abdominal aorta Doppler was performed. Negative for aneurysm. Additional Plan OK to discharge from a cardiac standpoint. See discharge instructions for follow-up Plan discussed with Dr Sagastume 1600 05/15/2020 Subjective Date/time seen: 05/15/20 15:42 Interval history: Patient is a 69 yo M with history of anemia, HTN, anxiety, and paroxysmal a. fib (self d/c'd home metoprolol and Eliquis several months ago) who is here for evaluation for epigastric pain. Patient states he feels better today after his EGD performed by Dr. Clark. He is tolerating his diet okay thus far. No pain currently. No N/v/. No other complaints. Wishing to be discharged. Denies f/c/s, headaches,cp/palpitations, sob/cough, current n/v/d/c, abd pain, changes in BMs, dysuria, hematuria, cloudy urine, calf pain/swelling. Review of Systems Constitutional: Constitutional: Denies weakness Eyes: Eyes: Denies blurry vision ENT: Denies epistaxis and Denies nasal discharge Cardiovascular: Cardiovascular: Denies chest pain, Denies diaphoresis, Denies pedal edema, Denies leg edema, Reports lightheadedness, Denies palpitations, Denies dyspnea and Denies dyspnea on exertion Respiratory: Respiratory: Denies chest congestion, Denies hemoptysis, Denies dyspnea, Denies dyspnea on exertion and
--- NOTE | 2020-05-15 16:32 | PM.DS ---
DS: Admitting Diagnosis Admitting Diagnosis Admitting Diagnosis: Chest pain, nausea, and vomiting. DS: Discharge Diagnosis Discharge Diagnosis (1) Epigastric pain: Code(s): R10.13 - Epigastric pain Status: Acute Assessment and Plan: Epigastric pain likely GI related. Cardiac work up negative thus far. Aortic US was unremarkable. EGD today shows gastric erosions without evidence of bleeding; histology pending. GI following and appreciate recommendations. 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 Continue PPI therapy BID Will await further rec from GI and Cardiology in terms of a/c vs ASA therapy for paroxysmal a. fib Monitor for now Consider discharge once okay with other specialists (2) Nausea and vomiting: Qualifiers: Vomiting type: unspecified Code(s): R11.2 - Nausea with vomiting, unspecified Status: Resolved Assessment and Plan: Resolved at this time. Likely gastritis; gastric erosions noted on EGD, no evidence of active bleeding. Tolerating diet at this time Monitor (3) Paroxysmal atrial fibrillation: Code(s): I48.0 - Paroxysmal atrial fibrillation Status: Acute Assessment and Plan: Currently in Sinus rhythm; asymptomatic at this time. Cardiology consulted and appreciate recommendations. Home BB and a/c are being discussed with patient. 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 Await further recommendations from Cardiology Monitor (4) Dehydration: Code(s): E86.0 - Dehydration Status: Acute Assessment and Plan: Tolerating diet. Will d/c IVf continue to monitor DS: Summary Hospital Course Reason for hospitalization: Chest pain/Epigastric Pain, ACS rule out, gastric erosions Hospital Course: Date of arrival: 05/13/20 Date of discharge: 05/15/20 Patient is a pleasant 69-year-old male with paroxysmal atrial fibrillation and hypertension, no longer on medications, via EMS from home on 05/13 for evaluation of chest pain, nausea, and vomiting. While in the ED, initial troponins was negative with unremarkable EKG and CXR. [place] to be GI related but felt that ACS not fully r/o. Patient admitted under this setting. Please see H&P for further details. Patient was admitted to the hospitalist service for further management/treatment. Cardiology was consulted from the ED for ACS r/o. Subsequent troponin lab values were negative, twice. GI was consulted given persistent symptoms during stay. Patient was placed on PPI BID during stay and given prescription at discharge. EGD performed by Dr. Clark (GI) on 05/15 and found gastric erosions which were not bleeding. NSAIDS and aspirin were not recommended after discharge. Patient okay for discharge from GI standpoint on 05/15 after he tolerated his diet. His pain had significantly improved during stay with BID PPI and GI cocktail. Of note, patient mentioned he self discontinued his Eliquis and his metoprolol as he felt woozy and that he had episodes of epistaxis. Cardiology recommended patient recover from gastric erosions prior to initiating a/c or aspirin therapy. He was to follow up with Cardiology on 06/19/2020 for further management in regards to this. He was to follow up with his PCP and ENT after discharge. He was given a prescription of 20 mg atorvastatin daily. Patient and family were agreeable and comfortable with plan for discharge. Patient hemodynamically stable and in improved condition for discharge on 05/15 Status at Discharge Overall status at discharge: patient is progressing back to baseline Time Spent with Patient Time attestation: Total time spent providing and/or coordinating discharge services: Time s
== END 2020-05-15 18:40 | disposition home or self-care (01) | DRG 384 ==
LOC: ANHED 07:28 → ANHIMU 16:30 → ANH2MED 18:01
PROVIDERS: Emergency Medicine; Internal Medicine Gastroenterology; Nurse Practitioner; Physician Assistant; Admitting Provider Internal Medicine; Emergency Provider Emergency Medicine; Visit Provider Physician Assistant
PROC: 0DJ08ZZ Inspection of Upper Intestinal Tract, Via Natural or Artificial Opening Endoscopic (ICD-10-PCS; CPT 43235; principal; 2020-05-15 10:00)
DX: K25.9 Gastric ulcer, unspecified as acute or chronic, without hemorrhage or perforation (principal); K29.70 Gastritis, unspecified, without bleeding; R07.89 Other chest pain; I48.0 Paroxysmal atrial fibrillation; E86.0 Dehydration; D69.6 Thrombocytopenia, unspecified; Z86.79 Personal history of other diseases of the circulatory system; Z87.891 Personal history of nicotine dependence
CPT/HCPCS: 36415; 71046; 76775; 80048; 80053; 80076; 83690; 83735; 84100; 84443; 84484; 85025; 85027; 85055; 85610; 85730; 88305; 88342; 93005; 96361; 96374; 96375; 96376; 97116; 97161; 97530; 99285; A9270; C9113; G0378; J2270; J2704; J7030; J7120